=== PATIENT | female | born 1990 | race Caucasian/White ===

== ENCOUNTER → 2018-10-12 | Outpatient (REF) | payer OTHER ==
[2018-10-12 19:27] LABS: FREE T4 0.95 NG/DL (0.76-1.46); HCG, SERUM QUANTITATIVE < 1.0 MIU/ML
[2018-10-12 19:28] LABS: LUTEINIZING HORMONE 6.3 mIU/mL; PROGESTERONE 0.31 NG/ML
[2018-10-12 19:29] LABS: FOLLICLE STIMULATING HORMONE 5.1 mIU/mL
== END ==
LOC: M LAB REF 17:22
PROVIDERS: ATTEND Obstetrics & Gynecology
DX: N92.1 Excessive and frequent menstruation with irregular cycle (principal)